=== PATIENT | male | born 1955 | race Caucasian/White ===

== ENCOUNTER → 2017-08-22 | Outpatient (CLI) | payer BC | LOC: GMAH 16:46 | PROVIDERS: ATTEND Family Medicine | DX: F52.21 Male erectile disorder (principal) ==

== ENCOUNTER → 2017-09-11 | Outpatient (CLI) | payer BC | END | disposition home or self-care (01) | LOC: GMAH 16:36 | PROVIDERS: ATTEND Family Medicine | DX: M54.08 Panniculitis affecting regions of neck and back, sacral and sacrococcygeal region (principal) ==